=== PATIENT | male | born 1965 | race Caucasian/White ===

== ENCOUNTER 2019-07-29 11:47 | Day surgery (SDC) | payer BC, SELFPAY ==
[2019-06-16 08:09] VITALS: BMI 35.9
--- NOTE | 2019-06-16 11:17 | HP_ITS ---
Intake Vital Signs 06/16/19 Height 5 ft 10 in 06/16/19 Weight: 250 lb 06/16/19 Body Mass Index (BMI) 35.9 Intake Visit Reasons: B/L HANDS Is patient in pain?: Yes Pain scale (1-10): 4 Allergies No Known Allergies Allergy (Unverified 06/16/19 08:09) Medications valsartan 40 mg tablet 40 mg PO BID 06/16/19 [History Confirmed 06/16/19] HPI B/L HANDS: Chief Complaint: Referral from Dr. Goodwin Surgical H&P: Yes Details: Parts of this documentation were recorded by a scribe, this documentation accurately reflects the service provided and the decisions made by me, Manpreet Munguia, 06/16/19 [id number]. COLE VELAZQUEZ is a 53 year old M new patient here today for referral from Dr. Goodwin. BL hand numbness and tingling of the 1st-3rd fingers with some pain. patient denies any EMG. Has been trying night bracing of the wrists for about 2- 3 years these do help. and states he has had about 3 steroid injections of the right wrist last being January 2019 that did helped but not for extended periods. STates the pain of his right wrist has gotten worse in the last 6 weeks. THe numbness is getting significant in the right side that started 6yrs ago. The left is not doing too bad right now ROS Const Reports system reviewed and no additional complaints, except as docu Eyes Reports system reviewed and no additional complaints, except as docu ENT Reports system reviewed and no additional complaints, except as docu Card Reports system reviewed and no additional complaints, except as docu Resp Reports system reviewed and no additional complaints, except as docu GI Reports system reviewed and no additional complaints, except as docu Reports system reviewed and no additional complaints, except as docu Musc Reports system reviewed and no additional complaints, except as docu, Reports as per HPI Skin/Breast Reports system reviewed and no additional complaints, except as docu Neuro Yes system reviewed and no additional complaints, except as docu Psych Reports system reviewed and no additional complaints, except as docu Endo Reports system reviewed and no additional complaints, except as docu Christian/Lymph Reports system reviewed and no additional complaints, except as docu Aller/Immun Reports system reviewed and no additional complaints, except as docu Ortho Exam Right Wrist/Hand Skin/Wound: No Swelling, No Ecchymosis, Yes nail intact, Yes capillary refill normal Contralateral Normal: No Right Wrist: Yes Durken's Test (symptoms present prior to maneuver), Tinel's and Phalen's (present prior to provacative maneuver) Sensation: Median: D Left Wrist/Hand Skin/Wound: No Swelling, No Ecchymosis Left Wrist: Yes Phalen's; no Durken's Test or no Tinel's Assessment & Plan Problems 1. Carpal tunnel syndrome of right wrist G56.01 2. Carpal tunnel syndrome, left G56.02 Plan Explained that he has clinical signs of carpal tunnel, treatment options are an EMG to determine severity however treatment at this point remains the same. Reviewed the risk of doing the release without the emg and he understands risks of continued symptoms . Reviewed the post op restrictions and the sensitivity of the scar and pillar pain associated with healing. Explained that the goal of surgery is to stop the progression , as well as the risk of serial injections but can also inject the left during surgery. Patient declines injection but agrees to consent for surgery. No lifting or gripping over 3lbs x 3wks Risks, benefits and alternatives of surgery reviewed including but no limited to risk of incisional hypersensitivity, pillar pain and continued symptomatology, nerve or artery damage, finger and wrist stiffness. Post op restrictions reviewed. Follow up post op or sooner if pain, swelling, numbness or associated symptoms, or concerns develop. All questions answered. Patient in agreement of plan. We will forward a copy to Dr. Goodwin. Thank you for this referral Coding Level of Care Code 49062 Diagnoses Carpal tunnel syndrome of right wrist G56.01 Carpal tunnel syndrome, left G56.02 06/16/19 1118 <Electronically signed by Manpreet David o DO> Date _ Manpreet Munguia DO
[2019-07-16 09:30] VITALS: BMI 35.9
[2019-07-29 12:05] VITALS: BP 127/87; PULSE 60; RESP 16; TEMP 36.7; O2SAT 98; BMI 36.2
[2019-07-29] MEDS: Lactated Ringers 1,000 ML 75 ML IV (12:20)
--- NOTE | 2019-07-29 13:11 | HP_ITS ---
Intake Vital Signs 06/16/19 Height 5 ft 10 in 06/16/19 Weight: 250 lb 06/16/19 Body Mass Index (BMI) 35.9 Intake Visit Reasons: B/L HANDS Is patient in pain?: Yes Pain scale (1-10): 4 Allergies No Known Allergies Allergy (Unverified 06/16/19 08:09) Medications valsartan 40 mg tablet 40 mg PO BID 06/16/19 [History Confirmed 06/16/19] HPI B/L HANDS: Chief Complaint: Referral from Dr. Goodwin Surgical H&P: Yes Details: Parts of this documentation were recorded by a scribe, this documentation accurately reflects the service provided and the decisions made by me, Manpreet Munguia, 06/16/19 2414. COLE VELAZQUEZ is a 53 year old M new patient here today for referral from Dr. Goodwin. BL hand numbness and tingling of the 1st-3rd fingers with some pain. patient denies any EMG. Has been trying night bracing of the wrists for about 2- 3 years these do help. and states he has had about 3 steroid injections of the right wrist last being January 2019 that did helped but not for extended periods. STates the pain of his right wrist has gotten worse in the last 6 weeks. THe numbness is getting significant in the right side that started 6yrs ago. The left is not doing too bad right now ROS Const Reports system reviewed and no additional complaints, except as docu Eyes Reports system reviewed and no additional complaints, except as docu ENT Reports system reviewed and no additional complaints, except as docu Card Reports system reviewed and no additional complaints, except as docu Resp Reports system reviewed and no additional complaints, except as docu GI Reports system reviewed and no additional complaints, except as docu Reports system reviewed and no additional complaints, except as docu Musc Reports system reviewed and no additional complaints, except as docu, Reports as per HPI Skin/Breast Reports system reviewed and no additional complaints, except as docu Neuro Yes system reviewed and no additional complaints, except as docu Psych Reports system reviewed and no additional complaints, except as docu Endo Reports system reviewed and no additional complaints, except as docu Christian/Lymph Reports system reviewed and no additional complaints, except as docu Aller/Immun Reports system reviewed and no additional complaints, except as docu Ortho Exam Right Wrist/Hand Skin/Wound: No Swelling, No Ecchymosis, Yes nail intact, Yes capillary refill normal Contralateral Normal: No Right Wrist: Yes Durken's Test (symptoms present prior to maneuver), Tinel's and Phalen's (present prior to provacative maneuver) Sensation: Median: D Left Wrist/Hand Skin/Wound: No Swelling, No Ecchymosis Left Wrist: Yes Phalen's; no Durken's Test or no Tinel's Assessment & Plan Problems 1. Carpal tunnel syndrome of right wrist G56.01 2. Carpal tunnel syndrome, left G56.02 Plan Explained that he has clinical signs of carpal tunnel, treatment options are an EMG to determine severity however treatment at this point remains the same. Reviewed the risk of doing the release without the emg and he understands risks of continued symptoms . Reviewed the post op restrictions and the sensitivity of the scar and pillar pain associated with healing. Explained that the goal of surgery is to stop the progression , as well as the risk of serial injections but can also inject the left during surgery. Patient declines injection but agrees to consent for surgery. No lifting or gripping over 3lbs x 3wks Risks, benefits and alternatives of surgery reviewed including but no limited to risk of incisional hypersensitivity, pillar pain and continued symptomatology, nerve or artery damage, finger and wrist stiffness. Post op restrictions reviewed. Follow up post op or sooner if pain, swelling, numbness or associated symptoms, or concerns develop. All questions answered. Patient in agreement of plan. We will forward a copy to Dr. Goodwin. Thank you for this referral Coding Level of Care Code 55136 Diagnoses Carpal tunnel syndrome of right wrist G56.01 Carpal tunnel syndrome, left G56.02
[2019-07-29] MEDS: Cefazolin 2 GM in 0.9% Normal Saline 100 ML IV (14:20)
[2019-07-29] MEDS: Bupivacaine Mpf 0.5% 30 ML VIAL (14:47)
[2019-07-29 14:57] VITALS: BP 108/74; BP 127/87; PULSE 67; RESP 16; TEMP 36.3; O2SAT 95
--- NOTE | 2019-07-29 14:58 | DCINST_ITS ---
Discharge Diet: No Restrictions Call your doctor if you observe: Fever of 101 or Higher, Shortness of breath, Chest pain Additional Instructions: Ice and elevate operative extremity next 72 hours. Keep dressing on clean and dry for 48 hours then may remove and allow warm soapy water to rinse over incision but do not submerge until sutures are out. Then apply bandaid over incision and change daily. encourage finger range of motion. Not lift more than 1/2 pound. Allergies/Adverse Reactions: Allergies No Known Allergies Allergy (Unverified 07/29/19 12:03) Medications to take at Discharge valsartan 40 mg tablet 40 mg PO DAILY 06/16/19 aspirin 81 mg tablet,delayed release 81 mg PO DAILY PRN 07/16/19 garlic 1,000 mg capsule 1,000 mg PO QPC 07/16/19 multivitamin,jc-abji-ogxoqqnh tablet 1 tab PO DAILY 07/16/19 omega-3 fatty acids 1,000 mg capsule 1,000 mg PO DAILY 07/16/19 oxygen-air delivery systems device See Rx Instructions .ROUTE .MEDSUPPLY #1 07/16/19 Hydrocodone Bitart/Apap 5-325 [[place] 5MG-325MG] 1 - 2 tablet PO Q4H PRN PRN 5 Days #25 tablet 07/29/19 The following prescriptions were given: Hydrocodone Bitart/Apap 5-325 [[place] 5MG-325MG] 1 - 2 tablet PO Q4H PRN PRN 5 Days #25 tablet PRN Reason: Pain Transmission Status: Sent to [id number] Primary Care Physician: Mohit Goodwin MD [Primary Care Provider] - Test Results: Test results from this visit will be discussed in further detail at your follow- up appointment, if applicable. Please Follow Up With: Manpreet Munguia DO - 2 weeks
--- NOTE | 2019-07-29 14:59 | PCM.OPRPT ---
Report of Operation Date of Procedure: 07/29/19 Description of Surgical Findings:: Preoperative diagnosis; right carpal tunnel syndrome Postoperative diagnosis; same Procedure: Right open carpal tunnel release Anesthesia: Local with MAC Tourniquet time; 10 minutes 250 mm Hg Complications: None Indication for procedure; This is a 53-year-old male with long-standing symptoms consistent with carpal tunnel syndrome the patient did have electrodiagnostic evidence of this and has failed conservative treatment. Risks benefits and alternatives were reviewed including risks of bleeding infection nerve artery tissue damage need for further surgery and continued pain and symptoms, hypersensitivity to scar and Pillar pain. Procedure; The patient was met in the preoperative holding area the operative extremity was identified by both patient and physician and was marked the patient was met by anesthesia and brought back to the operating room and transferred to the operating table in the supine position. Aanesthesia was started. A well-padded tourniquet was placed on the operative upper extremity. The patient was prepped and draped in the usual sterile fashion. A timeout was called to ensure the proper patient procedure and extremity were being contemplated. 0.5 percent Marcaine with epinephrine was injected into the incisional area. An Esmarch was used to exsanguinate the extremity. The tourniquet was inflated to 250 mmHg. A midline incision was made with a 15 blade scalpel between the thenar and hypothenar eminence. This was carried down through the skin and subcutaneous tissue. Vivek retractors were then used, a deep blade scalpel was used to make a deep incision in the palmar aponeurosis. The vivek retractors were then placed deep to this and the transverse carpal ligament was identified a perforation was made with a scalpel and a Littler scissors were used to complete the release of the transverse carpal ligament distally under direct visualization with the tips facing ulnarly until the perivascular fat was reached. Then turning our attention proximally using a tension slide technique the proximal extent of the transverse carpal ligament was released . There was noted to be hourglass configuration to the median nerve and hypertrophy of the transverse carpal ligament without other findings. The wound was thoroughly irrigated and was closed with 4-0 prolene vertical mattress stitches. Dressing was applied in the form of xeroform 4 x 4, web roll and an marck wrap. Tourniquet was let down there is no intraoperative complications patient tolerated the procedure well and was transferred to the PACU. All counts were correct.
[2019-07-29 15:00] VITALS: BP 113/81; BP 127/87; PULSE 60; RESP 16; O2SAT 95
[2019-07-29 15:05] VITALS: BP 113/83; BP 127/87; PULSE 58; RESP 16; O2SAT 95
[2019-07-29 15:09] VITALS: BP 111/85; BP 127/87; PULSE 63; RESP 16; TEMP 36.6; O2SAT 96
[2019-07-29 15:35] VITALS: BP 127/87
== END 2019-07-29 15:36 | disposition home or self-care (01) ==
LOC: SDC 11:48 → AC 11:50
PROVIDERS: Family Provider Family Medicine; PCP Family Medicine; Referring Provider Orthopaedic Surgery; Visit Provider Orthopaedic Surgery
PROC: (CPT 64721; principal; 2019-07-29 12:55)
DX: G56.03 Carpal tunnel syndrome, bilateral upper limbs (principal); I10 Essential (primary) hypertension; Z79.899 Other long term (current) drug therapy; Z79.82 Long term (current) use of aspirin; Z87.891 Personal history of nicotine dependence; G47.30 Sleep apnea, unspecified
CPT/HCPCS: 01810; 64721; J7120; J2405

== ENCOUNTER → 2019-08-26 08:24 | Outpatient (CLI) | payer BC, SELFPAY ==
[2019-08-11 15:55] VITALS: BMI 36.2
[2019-08-26 10:58] LABS: Anion Gap 9 (5-15); BUN 15 mg/dL (7-18); BUN/Creat Ratio 16.4 RATIO (10-20); Calcium,Total 8.7 mg/dL (8.5-10.1); Chloride 108 mmol/L (98-107); Cholesterol 153 mg/dL (200); Creatinine, Serum 0.91 mg/dL (0.70-1.30); EST Glomerular Filtration Rate 92 mL/min (>60); Est Glom Filt Rate - Afr Amer 111 mL/min (>60); Glucose 100 mg/dL (74-106); High Density Lipoprotein 37 mg/dL; Potassium 4.3 mmol/L (3.5-5.1); Sodium Level 145 mmol/L (136-145); Triglycerides 65 mg/dL; Very Low Density Lipoprotein 13 mg/dL (5-40)
== END ==
PROVIDERS: Family Provider Family Medicine; PCP Family Medicine; Referring Provider Family Medicine; Visit Provider Family Medicine
DX: E78.2 Mixed hyperlipidemia (principal); Z12.5 Encounter for screening for malignant neoplasm of prostate; I10 Essential (primary) hypertension
CPT/HCPCS: 36415; 80048; 80061; 84153; G0103